=== PATIENT | female | born 1990 | race Caucasian/White ===

== ENCOUNTER 2019-02-28 13:59 | Emergency (ER) | payer BC ==
--- NOTE | 2019-02-28 14:45 | UC ---
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 No fever. M inimal cough, no shortness of breath. No infectious contacts - History of Current Complaint Chief Complaint: UCRespiratory Stated Complaint: BODY ACHES,CHILLS,SINUS CONGESTION Time Seen by Provider: 02/28/19 14:37 Hx Obtained From: Patient Hx Last Menstrual Period: 02/23/19 Onset/Duration: Sudden Onset, Lasting Days - 1 Pain Intensity: 0 Cough: Nonproductive Associated Signs & Symptoms: Positive: Hoarseness, Sinus Discomfort. Negative: Wheezing, Vomiting - Epiglottits Risk Factors Epiglottis Risk Factors: Negative - Allergies/Home Medications Allergies/Adverse Reactions: Allergies Allergy/AdvReac Type Severity Reaction Status Date / Time No Known Allergies Allergy Verified 02/28/19 14:23 Home Medications: Home Medications Dextroamphetamine/Amphetamine [Adderall Xr 30 mg Capsule] 1 cap QAM 02/28/19 [ History Confirmed 02/28/19] PMH/Surg Hx/FS Hx/Imm Hx Previously Healthy: Yes Psychological History: Other - ADD - Surgical History Surgical History: Yes Surgery Procedure, Year, and Place: Tonsil 1993 - Family History Known Family History: Positive: None - parents living and healthy, Non- Contributory - Social History Alcohol Use: None Substance Use Type: None Smoking Status (MU): Never Smoked Tobacco Review of Systems All Other Systems Reviewed And Are Negative: Yes Constitutional: Positive: Chills, Fatigue ENT: Positive: Sore Throat, Sinus Congestion Motor: Positive: Negative Neurovascular: Positive: Negative Musculoskeletal: Positive: Negative Neurological: Positive: Headache - mostly sinus focused Is Patient Immunocompromised?: No Physical Exam Triage Information Reviewed: Yes Appearance: No Pain Distress, Ill-Appearing - congested, fatigued., Thin Vital Signs: Initial Vital Signs Temp 98.7 F 02/28/19 14:26 Pulse 106 02/28/19 14:26 Resp 16 02/28/19 14:26 BP 107/59 02/28/19 14:26 Pulse Ox 99 02/28/19 14:26 Eyes: Positive: Conjunctiva Clear ENT: Positive: Pharyngeal erythema - past tonsillectomy, TMs normal - mostly obscured by cerumen Neck: Positive: Supple, Nontender, Enlarged Nodes @ - anterior cervical, few small nodes. Respiratory: Positive: Lungs clear, Normal breath sounds Cardiovascular: Positive: RRR, No Murmur Musculoskeletal Exam: Normal Neurological Exam: Normal Psychological Exam: Normal Skin Exam: Normal Throat Pain/Nasal Course/Dx - Course Course Of Treatment: symptomatic treatment of viral uri. - Differential Dx/Diagnosis Differential Diagnosis/HQI/PQRI: Influenza, Laryngitis, Pharyngitis, URI Provider Diagnosis: Viral URI with cough Discharge ED - Sign-Out/Discharge Documenting (check all that apply): Patient Departure All imaging exams completed and their final reports reviewed: No Studies - Discharge Plan Condition: Stable Disposition: HOME Patient Education Materials: Upper Respiratory Infection (ED) Referrals: No Primary Care Phys,NOPCP [Primary Care Provider] - Additional Instructions: Continue symptomatic treatment with a high intake of fluids, rest at home, ibuprofen 600mg up to 3 times per day for headache, and trial of fluticasone ( Flonase spray) to relieve nasal and sinus congestion. - Billing Disposition and Condition Condition: STABLE Disposition: Home
[2019-02-28 15:42] VITALS: BP 107/59
== END 2019-02-28 14:55 | disposition home or self-care (01) ==
LOC: UCCORT 13:59
DX: J06.9 Acute upper respiratory infection, unspecified (principal); R05 Cough; F98.8 Other specified behavioral and emotional disorders with onset usually occurring in childhood and adolescence
CPT/HCPCS: 99201; G0463